=== PATIENT | male | born 1935 | race Asian ===

== ENCOUNTER 2016-11-21 17:02 | Emergency (ER) | payer OTHER, MEDICAID ==
[~2016-11-21] VITALS: Ht 175.3 cm; Wt 49.9 kg
[2016-11-21 17:10] VITALS: BP_SYST 114
--- NOTE | 2016-11-21 17:18 | NUR ---
Patient to ER bed 3 to gown for evaluation. Side rails up. Report given to RUDY ESPINOSA.
--- NOTE | 2016-11-21 17:20 | NUR ---
Pt bib son for c/o fever, nausea, vomiting, right leg pain, diarrhea, soreness since this morning. Pain is 5-6/10 to right leg. Pt is ambulatory with steady gait. Temp is 99.1, lung sounds clear, diminised at bases, skin is warm, dry, intact. Pt is placed on patient monitor and continuous pulse ox.
--- NOTE | 2016-11-21 17:25 | NUR ---
Dr. Trevino at bedside to assess pt.
[2016-11-21 17:30] LABS: BILIRUBIN,URINE NEGATIVE (NEGATIVE); CLARITY/URINE CLEAR (CLEAR); COLOR,URINE YELLOW (YELLOW); GLUCOSE,URINE NEGATIVE (NEGATIVE); KETONES,URINE TRACE (NEGATIVE); LEUKOCYTE ESTERASE ,URINE NEGATIVE (NEGATIVE); NITRITE, URINE NEGATIVE (NEGATIVE); PH,URINE 6.5 (5.0-8.0); PROTEIN URINE NEGATIVE (NEGATIVE); UROBILINOGEN,URINE 0.2 (0.2-1.0)
[2016-11-21] MEDS ORDERED: IBUPROFEN 600 MG TABLET PO ONE (17:30)
[2016-11-21] MEDS ORDERED: ONDANSETRON 4 MG ODT TAB PO ONE (17:30)
[2016-11-21 17:37] LABS: BLOOD, URINE TRACE (NEGATIVE)
[2016-11-21 17:39] LABS: BACTERIA,URINE FEW /HPF (None Seen); MUCUS,URINE None Seen /LPF (None Seen); RBC,URINE NONE SEEN /HPF (0-3); WBC,URINE 0-3 /HPF (0-3)
[2016-11-21 17:47] LABS: HEMATOCRIT 38.7 % (36-54); MEAN CORPUSCULAR HEMOGLOBIN 34 pg (27-31); MEAN CORPUSCULAR HGB CONC 34 % (32-36); MEAN CORPUSCULAR VOLUME 100 fL (79.0-98.0); PLATELET COUNT (AUTO) 133 K/uL (130-430); RED BLOOD CELL COUNT(AUTO) 3.88 MIL/uL (4.2-6.2); RED CELL DISTRIBUTION WIDTH 12.7 % (9.0-15.0); WHITE BLOOD COUNT (AUTO) 7.8 K/uL (4.8-10.8)
[2016-11-21 17:51] LABS: ANION GAP 8 (5-15); CALCIUM 8.7 mg/dL (8.4-11.0); CHLORIDE 99 mmol/L (98-107); CREATININE 1.08 mg/dL (0.55-1.30); GLUCOSE 103 mg/dL (70-99); POTASSIUM 3.7 mmol/L (3.5-5.1); SODIUM SERUM 133 mmol/L (136-145); UREA NITROGEN, BLOOD 20 mg/dL (8-21)
[2016-11-21 17:55] LABS: ALANINE AMINOTRANSFERASE 21 U/L (12-78); ALBUMIN 3.3 g/dL (3.4-4.8); AMYLASE 83 U/L (0-100); ASPARTATE AMINOTRANSFERASE 22 U/L (10-37); LIPASE 61 U/L (73-393); TOTAL BILIRUBIN 1.2 mg/dL (0.0-1.0); TOTAL PROTEIN, SERUM 7.3 g/dL (6.4-8.3)
--- NOTE | 2016-11-21 17:57 | NUR ---
Pt given pain medication per MD order. Will reasses pt.
[2016-11-21 18:00] LABS: BAND % (MANUAL) 11 % (0-6); BASOPHILS % (MANUAL) 0 % (0-2); EOSINOPHILS % (MANUAL) 0 % (0-7); LYMPHOCYTES % (MANUAL) 3 % (20-46); MONOCYTES % (MANUAL) 4 % (0-11)
[2016-11-21 19:20] VITALS: BP_SYST 114
--- NOTE | 2016-11-21 19:20 | NUR ---
Patient given written and verbal discharge instructions and verbalizes understanding. ER MD discussed with patient the results and treatment provided. Patient in stable condition. ID arm band removed. IV catheter removed intact and dressing applied, no active bleeding. Rx of mortin 600mg and zofran 4mg odt given. Opportunity for questions provided and answered.
== END 2016-11-21 19:20 | disposition home or self-care (01) ==
LOC: SED 17:02
DX: R10.9 Unspecified abdominal pain (principal); R11.10 Vomiting, unspecified; R19.7 Diarrhea, unspecified; I10 Essential (primary) hypertension; M79.661 Pain in right lower leg
CPT/HCPCS: 36415; 74176; 80053; 81000; 82150; 83690; 85007; 85027; 85610; 85730; 99285; Q0162

== ENCOUNTER 2021-10-31 13:00 | Emergency (ER) | payer OTHER, MEDICAID ==
[~2021-10-31] VITALS: Ht 175.3 cm; Wt 63.5 kg
[2021-10-31 13:15] VITALS: BP_SYST 130
[2021-10-31 17:15] VITALS: BP_SYST 121
[2021-10-31] MEDS ORDERED: ACET-73 PO (17:22)
== END 2021-10-31 17:31 | disposition home or self-care (01) ==
LOC: SED 13:00
DX: R51.9 Headache, unspecified (principal); I10 Essential (primary) hypertension; K21.9 Gastro-esophageal reflux disease without esophagitis
CPT/HCPCS: 70450-TC; 76376; 99284

== ENCOUNTER 2022-04-23 09:09 | Emergency (ER) | payer OTHER, MEDICAID ==
[~2022-04-23] VITALS: Ht 170.2 cm; Wt 70.3 kg
[~2022-04-23 09:09] MED LIST: ACET-73 PO
[2022-04-23 09:10] VITALS: BP_SYST 144
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
--- NOTE | 2022-04-23 11:44 | NUR ---
Pt resting at this time, no s/s of distress, will cont to monitor
[2022-04-23 12:49] VITALS: BP_SYST 126
== END 2022-04-23 12:47 | disposition home or self-care (01) ==
LOC: SED 09:09
DX: S30.0XXA Contusion of lower back and pelvis, initial encounter (principal); K21.9 Gastro-esophageal reflux disease without esophagitis; I10 Essential (primary) hypertension; M47.812 Spondylosis without myelopathy or radiculopathy, cervical region; Z79.899 Other long term (current) drug therapy; W19.XXXA Unspecified fall, initial encounter; Y93.89 Activity, other specified; Y92.89 Other specified places as the place of occurrence of the external cause; Y99.8 Other external cause status
CPT/HCPCS: 70450-TC; 72125-TC; 72170-TC; 72220-TC; 76376; 99284